=== PATIENT | female | born 1960 | race African-American/Black ===

== ENCOUNTER 2019-07-22 15:21 | Emergency (ER) | payer MEDICAID ==
[2019-07-22 16:14] LABS: BASOPHILS % (AUTO) 0.1 % (0.0-5.0); EOSINOPHILS % (AUTO) 4.1 % (0.0-8.0); LYMPHOCYTES % (AUTO) 26.4 % (21.0-51.0); MEAN CORPUSCULAR HGB CONC 32.8 g/dL (32.0-36.0); MEAN CORPUSCULAR VOLUME 88.4 fL (79-99); MONOCYTES % (AUTO) 6.2 % (3.0-13.0); NEUTROPHILS % (AUTO) 62.9 % (40.0-77.0); PLATELET COUNT (AUTO) 273 K/uL (130-400); RED BLOOD CELL COUNT(AUTO) 4.41 MIL/uL (4.00-5.50); RED CELL DISTRIBUTION WIDTH 13.3 % (11.0-15.5); WHITE BLOOD COUNT (AUTO) 7.3 K/uL (4.8-10.8)
[2019-07-22] MEDS ORDERED: METHYLPREDNISOLONE SOD SUCC 125MG/2ML VIAL ONE (16:19)
[2019-07-22 16:28] LABS: CREATININE 0.9 mg/dL (0.5-1.5); POTASSIUM 3.8 mmol/L (3.5-5.1)
[2019-07-22 16:32] LABS: B-TYPE NATRIURETIC PEPTIDE 20 pg/mL (0-100)
[2019-07-22 16:33] LABS: ALBUMIN 3.5 g/dL (3.5-5.0); BILIRUBIN,TOTAL 0.6 mg/dL (0.2-1.0)
[2019-07-22] MEDS ORDERED: IPRATROPIUM/ALBUTEROL SULFATE 3 ML SOLUTION IH ONE (16:37)
[2019-07-22 16:38] LABS: INR 0.95 (0.85-1.15); PARTIAL THROMBOPLASTIN TIME 25.4 SEC (26.3-35.5)
[2019-07-22] MEDS ORDERED: AZITHROMYCIN 250 MG TABLET PO ONE (16:58)
[2019-07-22] MEDS ORDERED: ACETAMINOPHEN EXTRA STRENGTH 500 MG TABLET ONE (17:16)
[2019-07-22] MEDS ORDERED: ALBUTEROL SULFATE 0.083% 2.5 MG/3 ML INH IH ONE (17:34)
== END 2019-07-22 18:28 | disposition home or self-care (01) ==
LOC: EDH 15:21
DX: J45.40 Moderate persistent asthma, uncomplicated (principal); J20.9 Acute bronchitis, unspecified; I10 Essential (primary) hypertension; Z90.710 Acquired absence of both cervix and uterus; Z88.6 Allergy status to analgesic agent
CPT/HCPCS: 36415; 71045; 80053; 82550; 83605; 83880; 84484; 85025; 85610; 85730; 87040 ×2; 87804 ×2; 93005; 94640 ×2; 96374; 99285; J2930

== ENCOUNTER 2021-03-22 20:16 | Inpatient (IN) | payer MEDICAID ==
[~2021-03-22] VITALS: Ht 160 cm; Wt 167.4 kg
[2021-03-22 20:34] VITALS: BP_SYST 145; BP_SYST 156; BP_DIAS 80; BP_DIAS 89
[2021-03-22] MEDS ORDERED: SOLU-MEDROL 125MG VIAL IVP ONE (21:00)
[2021-03-22] MEDS ORDERED: ACETAMINOPHEN WITH CODEINE 1 TAB TAB PO ONE (21:00)
[2021-03-22] MEDS ORDERED: ALBUTEROL INHALER 90MCG/INH IH PRN (21:00)
[2021-03-22 21:07] LABS: ABG BASE EXCESS -0.2 mmol/L (-2.0-3.0); ABG HCO3 21.6 mmol/L (21.0-28.0); ABG OXYGEN SATURATION 97.1 % (95.0-99.0); ABG PCO2 28 mmHg (32-45)
[2021-03-22 21:12] LABS: BASOPHILS % (AUTO) 0.2 % (0.0-5.0); EOSINOPHILS % (AUTO) 0.9 % (0.0-8.0); HEMATOCRIT 45.2 % (36-48); LYMPHOCYTES % (AUTO) 34.6 % (21.0-51.0); MEAN CORPUSCULAR HEMOGLOBIN 29.5 pg (27.0-33.0); MEAN CORPUSCULAR HGB CONC 32.5 g/dL (32.0-36.0); MEAN CORPUSCULAR VOLUME 90.6 fL (79-99); MONOCYTES % (AUTO) 8.7 % (3.0-13.0); NEUTROPHILS % (AUTO) 54.7 % (40.0-77.0); PLATELET COUNT (AUTO) 263 K/uL (130-400); RED BLOOD CELL COUNT(AUTO) 4.99 MIL/uL (4.00-5.50); RED CELL DISTRIBUTION WIDTH 13.3 % (11.0-15.5); WHITE BLOOD COUNT (AUTO) 4.4 K/uL (4.8-10.8)
[2021-03-22] MEDS ORDERED: IPRATROPIUM/ALBUTEROL SULFATE 3 ML SOLUTION IH ONE ×2 (21:12→21:30)
[2021-03-22 21:25] LABS: CREATININE 0.9 mg/dL (0.5-1.5); POTASSIUM 4.7 mmol/L (3.5-5.1)
[2021-03-22 21:26] LABS: INR 0.99 (0.85-1.15); PROTHROMBIN TIME 10.8 SEC (9.6-11.6)
[2021-03-22 21:30] LABS: ALBUMIN 3.4 g/dL (3.5-5.0); BILIRUBIN,TOTAL 0.6 mg/dL (0.2-1.0); TOTAL PROTEIN, SERUM 8.1 g/dL (6.0-8.3)
[2021-03-22] MEDS ORDERED: OSELTAMIVIR PHOSPHATE 75 MG CAP PO SCH (21:30)
[2021-03-22] MEDS: 0.9%NACL 1000ML 1,000 ML IV SCH ×2 (21:32→23:00)
[2021-03-22 21:44] VITALS: BP 140/95
[2021-03-22 21:55] LABS: D-DIMER 1199 ng/mL (0-500)
[2021-03-22 22:49] VITALS: BP 148/91
[2021-03-22] MEDS ORDERED: ALBUTEROL INHALER 90MCG/INH IH ONE ×2 (23:00→23:50)
[2021-03-22] MEDS ORDERED: PHARMACY COMMUNICATION MISC SCH (23:00)
[2021-03-22] MEDS ORDERED: ERGOCALCIFEROL (VITAMIN D2) 50,000 UNIT CAPSULE PO ONE (23:00)
[2021-03-22] MEDS ORDERED: 0.9%NACL 1000ML 1,572 ML IV ONE (23:00)
[2021-03-22] MEDS ORDERED: ACETAMINOPHEN 325 MG TAB PO PRN (23:00)
[2021-03-22] MEDS ORDERED: IOHEXOL 350 MG/ML 100ML INFUS..BTL IV ONE (23:04)
[2021-03-22] MEDS ORDERED: LORAZEPAM 2 MG/ML 1 ML VIAL ONE (23:45)
[2021-03-22] MEDS: CEFTRIAXONE 1G VIAL IVP SCH (23:49)
[2021-03-22] MEDS: DEXAMETHASONE SOD PHOSPHATE 4 MG/ML 1ML VIAL IVP SCH (23:49)
[2021-03-22] MEDS: ALBUTEROL INHALER 90MCG/INH IH SCH (23:50)
[2021-03-22] MEDS: DOXYCYCLINE 100MG+NS 250ML IV SCH (23:50)
[2021-03-23] MEDS ORDERED: LORAZEPAM 2 MG/ML 1 ML VIAL IVP ONE
[2021-03-23 02:59] VITALS: BP 130/79
[2021-03-23 06:15] VITALS: BP 14/64
[2021-03-23] MEDS: ALBUTEROL INHALER 90MCG/INH IH SCH ×4 (06:35→17:42)
[2021-03-23 06:38] LABS: BASOPHILS % (AUTO) 0.3 % (0.0-5.0); HEMATOCRIT 39.1 % (36-48); LYMPHOCYTES % (AUTO) 10.1 % (21.0-51.0); MEAN CORPUSCULAR HEMOGLOBIN 28.9 pg (27.0-33.0); MEAN CORPUSCULAR HGB CONC 31.7 g/dL (32.0-36.0); MEAN CORPUSCULAR VOLUME 91.1 fL (79-99); MONOCYTES % (AUTO) 2.1 % (3.0-13.0); NEUTROPHILS % (AUTO) 86.7 % (40.0-77.0); PLATELET COUNT (AUTO) 258 K/uL (130-400); RED BLOOD CELL COUNT(AUTO) 4.29 MIL/uL (4.00-5.50); RED CELL DISTRIBUTION WIDTH 13.5 % (11.0-15.5); WHITE BLOOD COUNT (AUTO) 3.8 K/uL (4.8-10.8)
[2021-03-23] MEDS: 0.9%NACL 1000ML 1,000 ML IV SCH ×3 (06:58→13:40)
[2021-03-23] MEDS ORDERED: COMPOUND IV REFRIGERATED 1 EACH IVSOLN MISC PRN (07:00)
[2021-03-23] MEDS ORDERED: REMDESIVIR (EUA) 520 200 MG in 0.9% NACL 250ML 250 ML IV ONE (07:00)
[2021-03-23 07:21] LABS: ALBUMIN 2.7 g/dL (3.5-5.0); BILIRUBIN,TOTAL 0.2 mg/dL (0.2-1.0); CREATININE 1.4 mg/dL (0.5-1.5); POTASSIUM 3.3 mmol/L (3.5-5.1); TOTAL PROTEIN, SERUM 7.3 g/dL (6.0-8.3)
[2021-03-23] MEDS ORDERED: FAMOTIDINE 20MG TAB PO SCH (09:00)
[2021-03-23] MEDS: ZINC SULFATE 220 CAPSULE PO SCH (09:24)
[2021-03-23] MEDS: ASCORBIC ACID 500 MG TAB PO SCH (09:24)
[2021-03-23] MEDS: ENOXAPARIN SODIUM 40 MG/0.4 ML SYRINGE SQ SCH ×2 (09:24→21:57)
[2021-03-23] MEDS: PANTOPRAZOLE 40 MG TAB DR PO SCH (09:24)
[2021-03-23] MEDS: OSELTAMIVIR PHOSPHATE 75 MG CAP PO SCH (09:24)
[2021-03-23] MEDS ORDERED: KCL 20 MEQ ERTAB PO ONE (10:30)
[2021-03-23 11:01] VITALS: BP 117/63
[2021-03-23] MEDS: INSULIN HUMULIN R 100 UNIT/ML 3ML SQ SCH ×3 (11:30→21:00)
[2021-03-23] MEDS: DOXYCYCLINE 100MG+NS 250ML IV SCH ×2 (11:37→23:32)
[2021-03-23] MEDS: CEFTRIAXONE 1G VIAL IVP SCH ×2 (11:37→23:32)
[2021-03-23 14:54] VITALS: BP 147/66
[2021-03-23 18:14] VITALS: BP 124/74
[2021-03-23 22:59] VITALS: BP 135/70
[2021-03-23] MEDS: DEXAMETHASONE SOD PHOSPHATE 4 MG/ML 1ML VIAL IVP SCH (23:32)
[2021-03-24] VITALS (7 sets, daily range): BP systolic 108–143; BP diastolic 74–90
[2021-03-24] MEDS: ALBUTEROL INHALER 90MCG/INH IH SCH ×4 (00:13→18:00)
[2021-03-24] MEDS: 0.9%NACL 1000ML 1,000 ML IV SCH ×2 (02:56→15:24)
[2021-03-24] MEDS: REMDESIVIR LABS MISC SCH (06:00)
[2021-03-24] MEDS: INSULIN HUMULIN R 100 UNIT/ML 3ML SQ SCH ×4 (07:30→20:34)
[2021-03-24 08:07] LABS: BASOPHILS % (AUTO) 0.1 % (0.0-5.0); HEMATOCRIT 39.3 % (36-48); LYMPHOCYTES % (AUTO) 12.7 % (21.0-51.0); MEAN CORPUSCULAR HEMOGLOBIN 29.1 pg (27.0-33.0); MEAN CORPUSCULAR HGB CONC 31.3 g/dL (32.0-36.0); MEAN CORPUSCULAR VOLUME 93.1 fL (79-99); MONOCYTES % (AUTO) 3.8 % (3.0-13.0); NEUTROPHILS % (AUTO) 82.8 % (40.0-77.0); PLATELET COUNT (AUTO) 267 K/uL (130-400); RED BLOOD CELL COUNT(AUTO) 4.22 MIL/uL (4.00-5.50); RED CELL DISTRIBUTION WIDTH 13.6 % (11.0-15.5); WHITE BLOOD COUNT (AUTO) 7.9 K/uL (4.8-10.8)
[2021-03-24] MEDS ORDERED: PHARMACY COMMUNICATION-LABS AST AND ALT PLEASE MISC STA (08:13)
[2021-03-24 08:20] LABS: ALBUMIN 2.7 g/dL (3.5-5.0); BILIRUBIN,TOTAL 0.3 mg/dL (0.2-1.0); CREATININE 1.1 mg/dL (0.5-1.5); CRP QUANTITATIVE 5.9 mg/L (0.00-9.0); POTASSIUM 4.4 mmol/L (3.5-5.1)
[2021-03-24] MEDS: ASCORBIC ACID 500 MG TAB PO SCH (09:15)
[2021-03-24] MEDS: PANTOPRAZOLE 40 MG TAB DR PO SCH (09:15)
[2021-03-24] MEDS: ZINC SULFATE 220 CAPSULE PO SCH (09:15)
[2021-03-24] MEDS: ENOXAPARIN SODIUM 40 MG/0.4 ML SYRINGE SQ SCH ×2 (09:15→20:41)
[2021-03-24] MEDS: OSELTAMIVIR PHOSPHATE 75 MG CAP PO SCH (09:15)
[2021-03-24] MEDS: CEFTRIAXONE 1G VIAL IVP SCH ×2 (11:16→22:23)
[2021-03-24] MEDS: DOXYCYCLINE 100MG+NS 250ML IV SCH ×2 (11:16→23:08)
[2021-03-24] MEDS: REMDESIVIR (EUA) 520 100 MG in 0.9% NACL 250ML 250 ML IV SCH (13:15)
[2021-03-24] MEDS: DEXAMETHASONE SOD PHOSPHATE 4 MG/ML 1ML VIAL IVP SCH (23:09)
[2021-03-25] VITALS (7 sets, daily range): BP systolic 133–180; BP diastolic 72–99
[2021-03-25] MEDS: 0.9%NACL 1000ML 1,000 ML IV SCH ×2 (03:52→17:02)
[2021-03-25 05:20] LABS: BASOPHILS % (AUTO) 0.1 % (0.0-5.0); HEMATOCRIT 39.8 % (36-48); LYMPHOCYTES % (AUTO) 12.8 % (21.0-51.0); MEAN CORPUSCULAR HEMOGLOBIN 29.5 pg (27.0-33.0); MEAN CORPUSCULAR HGB CONC 32.2 g/dL (32.0-36.0); MEAN CORPUSCULAR VOLUME 91.7 fL (79-99); MONOCYTES % (AUTO) 4.6 % (3.0-13.0); PLATELET COUNT (AUTO) 308 K/uL (130-400); RED BLOOD CELL COUNT(AUTO) 4.34 MIL/uL (4.00-5.50); RED CELL DISTRIBUTION WIDTH 13.5 % (11.0-15.5); WHITE BLOOD COUNT (AUTO) 7.3 K/uL (4.8-10.8)
[2021-03-25] MEDS: ALBUTEROL INHALER 90MCG/INH IH SCH ×4 (05:53→17:02)
[2021-03-25] MEDS: REMDESIVIR LABS MISC SCH (05:53)
[2021-03-25 05:57] LABS: ALBUMIN 2.8 g/dL (3.5-5.0); BILIRUBIN,TOTAL 0.2 mg/dL (0.2-1.0); CRP QUANTITATIVE 2.2 mg/L (0.00-9.0); POTASSIUM 3.9 mmol/L (3.5-5.1); TOTAL PROTEIN, SERUM 7.4 g/dL (6.0-8.3)
[2021-03-25] MEDS: INSULIN HUMULIN R 100 UNIT/ML 3ML SQ SCH ×4 (06:27→19:52)
[2021-03-25] MEDS: ZINC SULFATE 220 CAPSULE PO SCH (08:10)
[2021-03-25] MEDS: ASCORBIC ACID 500 MG TAB PO SCH (08:10)
[2021-03-25] MEDS: OSELTAMIVIR PHOSPHATE 75 MG CAP PO SCH (08:10)
[2021-03-25] MEDS: PANTOPRAZOLE 40 MG TAB DR PO SCH (08:10)
[2021-03-25] MEDS: ENOXAPARIN SODIUM 40 MG/0.4 ML SYRINGE SQ SCH ×2 (08:14→20:06)
[2021-03-25] MEDS: CEFTRIAXONE 1G VIAL IVP SCH ×2 (11:15→22:52)
[2021-03-25] MEDS: DOXYCYCLINE 100MG+NS 250ML IV SCH ×2 (12:28→22:52)
[2021-03-25] MEDS: REMDESIVIR (EUA) 520 100 MG in 0.9% NACL 250ML 250 ML IV SCH (13:35)
[2021-03-25] MEDS: DEXAMETHASONE SOD PHOSPHATE 4 MG/ML 1ML VIAL IVP SCH (22:52)
[2021-03-26] MEDS: ALBUTEROL INHALER 90MCG/INH IH SCH ×4 (00:23→18:00)
[2021-03-26 03:58] VITALS: BP 141/74
[2021-03-26 05:22] LABS: ALBUMIN 2.8 g/dL (3.5-5.0); BILIRUBIN,TOTAL 0.2 mg/dL (0.2-1.0); POTASSIUM 3.9 mmol/L (3.5-5.1); TOTAL PROTEIN, SERUM 7.2 g/dL (6.0-8.3)
[2021-03-26] MEDS: REMDESIVIR LABS MISC SCH (06:00)
[2021-03-26] MEDS: INSULIN HUMULIN R 100 UNIT/ML 3ML SQ SCH ×4 (06:03→20:26)
[2021-03-26] MEDS: 0.9%NACL 1000ML 1,000 ML IV SCH ×2 (06:03→20:31)
[2021-03-26 07:20] VITALS: BP 173/93
[2021-03-26] MEDS: CEFTRIAXONE 1G VIAL IVP SCH ×2 (11:22→22:23)
[2021-03-26] MEDS: ASCORBIC ACID 500 MG TAB PO SCH (11:23)
[2021-03-26] MEDS: ENOXAPARIN SODIUM 40 MG/0.4 ML SYRINGE SQ SCH ×2 (11:23→20:31)
[2021-03-26] MEDS: ZINC SULFATE 220 CAPSULE PO SCH (11:24)
[2021-03-26] MEDS: PANTOPRAZOLE 40 MG TAB DR PO SCH (11:24)
[2021-03-26] MEDS: DOXYCYCLINE 100MG+NS 250ML IV SCH ×2 (11:24→22:24)
[2021-03-26] MEDS: OSELTAMIVIR PHOSPHATE 75 MG CAP PO SCH (11:24)
[2021-03-26 11:58] VITALS: BP 141/91
[2021-03-26] MEDS: REMDESIVIR (EUA) 520 100 MG in 0.9% NACL 250ML 250 ML IV SCH (13:00)
[2021-03-26 15:23] VITALS: BP 150/92
[2021-03-26 20:00] VITALS: BP 133/76
[2021-03-26] MEDS: DEXAMETHASONE SOD PHOSPHATE 4 MG/ML 1ML VIAL IVP SCH (22:24)
[2021-03-27] VITALS: BP 137/87
[2021-03-27 04:00] VITALS: BP 137/80
[2021-03-27 04:11] LABS: BASOPHILS % (AUTO) 0.3 % (0.0-5.0); HEMATOCRIT 38.3 % (36-48); LYMPHOCYTES % (AUTO) 14.5 % (21.0-51.0); MEAN CORPUSCULAR HEMOGLOBIN 28.9 pg (27.0-33.0); MEAN CORPUSCULAR HGB CONC 32.1 g/dL (32.0-36.0); MEAN CORPUSCULAR VOLUME 89.9 fL (79-99); MONOCYTES % (AUTO) 4.6 % (3.0-13.0); PLATELET COUNT (AUTO) 310 K/uL (130-400); RED BLOOD CELL COUNT(AUTO) 4.26 MIL/uL (4.00-5.50); RED CELL DISTRIBUTION WIDTH 13.3 % (11.0-15.5)
[2021-03-27 04:25] LABS: ALBUMIN 2.6 g/dL (3.5-5.0); BILIRUBIN,TOTAL 0.2 mg/dL (0.2-1.0); CREATININE 0.9 mg/dL (0.5-1.5); POTASSIUM 4.1 mmol/L (3.5-5.1); TOTAL PROTEIN, SERUM 6.7 g/dL (6.0-8.3)
[2021-03-27] MEDS: ALBUTEROL INHALER 90MCG/INH IH SCH ×2 (05:51)
[2021-03-27] MEDS: INSULIN HUMULIN R 100 UNIT/ML 3ML SQ SCH ×2 (05:51→11:30)
[2021-03-27] MEDS: REMDESIVIR LABS MISC SCH (06:00)
[2021-03-27] MEDS ORDERED: APIX2.5T PO (07:24)
[2021-03-27] MEDS ORDERED: OSEL75 PO (07:24)
[2021-03-27] MEDS ORDERED: DOXY100C5 PO (07:24)
[2021-03-27] MEDS ORDERED: DEXA6TAB7 PO (07:24)
[2021-03-27 08:00] VITALS: BP 161/62
[2021-03-27] MEDS ORDERED: PANT40TA PO (08:02)
[2021-03-27] MEDS ORDERED: ALBU8.5H8 IH (09:38)
[2021-03-27] MEDS: 0.9%NACL 1000ML 1,000 ML IV SCH (09:50)
[2021-03-27] MEDS: ZINC SULFATE 220 CAPSULE PO SCH (10:25)
[2021-03-27] MEDS: ASCORBIC ACID 500 MG TAB PO SCH (10:25)
[2021-03-27] MEDS: PANTOPRAZOLE 40 MG TAB DR PO SCH (10:25)
[2021-03-27] MEDS: ENOXAPARIN SODIUM 40 MG/0.4 ML SYRINGE SQ SCH (10:25)
[2021-03-27] MEDS: OSELTAMIVIR PHOSPHATE 75 MG CAP PO SCH (10:25)
[2021-03-27] MEDS ORDERED: REMDESIVIR (EUA) 520 100 MG in 0.9% NACL 250ML 250 ML IV SCH (10:30)
[2021-03-27] MEDS: CEFTRIAXONE 1G VIAL IVP SCH (10:38)
[2021-03-27 12:11] VITALS: BP 104/79
[2021-03-27] MEDS: DOXYCYCLINE 100MG+NS 250ML IV SCH (13:11)
[2021-03-27 16:08] VITALS: BP 109/85
[2021-03-28] MEDS ORDERED: ALBUTEROL INHALER 90MCG/INH IH SCH
== END 2021-03-27 18:00 | disposition home or self-care (01) | DRG 720 ==
LOC: EDH 20:16 → EDHIP 22:42 → 4AH 03-24 17:27
PROVIDERS: ADMIT Internal Medicine; ATTEND Internal Medicine
PROC: XW033E5 Introduction of Remdesivir Anti-infective into Peripheral Vein, Percutaneous Approach, New Technology Group 5 (ICD-10-PCS; principal; 2021-03-23)
DX: A41.89 Other specified sepsis (principal); U07.1 COVID-19; J96.01 Acute respiratory failure with hypoxia; J10.08 Influenza due to other identified influenza virus with other specified pneumonia; E66.01 Morbid (severe) obesity due to excess calories; Z68.44 Body mass index [BMI] 60.0-69.9, adult; J45.901 Unspecified asthma with (acute) exacerbation; J12.82 Pneumonia due to coronavirus disease 2019; B96.89 Other specified bacterial agents as the cause of diseases classified elsewhere; E11.9 Type 2 diabetes mellitus without complications; E87.6 Hypokalemia; I10 Essential (primary) hypertension; E78.5 Hyperlipidemia, unspecified; Z99.3 Dependence on wheelchair; Z90.710 Acquired absence of both cervix and uterus; Z88.8 Allergy status to other drugs, medicaments and biological substances; Z91.018 Allergy to other foods; Z87.891 Personal history of nicotine dependence
CPT/HCPCS: 36415; 36600; 71045; 71275; 80053; 80061; 82728; 82803; 82948; 83605; 83615; 83880; 84145; 85025; 85378; 85610; 85730; 86140; 87040; 87077; 87186; 87426; 87804; 93005; 93970; 94640; G0378; J0696; J1100; J1650; J2060; J2930; J3490; J7030; J7050; Q9967

== ENCOUNTER → 2022-01-24 | Outpatient (CLI) | payer OTHER ==
[~2022-01-24] MED LIST: ALBU8.5H8 IH; APIX2.5T PO; DEXA6TAB7 PO; DOXY100C5 PO; OSEL75 PO; PANT40TA PO
== END | disposition home or self-care (01) ==
LOC: RAH 13:00
PROVIDERS: ATTEND Internal Medicine Cardiovascular Disease
DX: Z13.6 Encounter for screening for cardiovascular disorders (principal); I51.5 Myocardial degeneration
CPT/HCPCS: 75571